=== PATIENT | female | born 1970 | race Caucasian/White ===

== ENCOUNTER 2020-04-22 13:05 | Emergency (ER) | payer SELFPAY ==
[2020-04-22 13:20] VITALS: BP 140/91; PULSE 73; RESP 14; TEMP 35.9; O2SAT 100; BMI 29.2
--- NOTE | 2020-04-22 15:30 | W.ED.ABDPA2 ---
HPI - Abdominal Pain General: Chief Complaint: Abdominal Pain Stated Complaint: lower abd pain Time Seen by Provider: 04/22/20 15:29 Source: patient Mode of arrival: ambulatory Limitations: no limitations History of Present Illness: HPI narrative: Pt states she has had increasing lower abdominal pain with mild NVD. She states she is on her period but this is progressively worse and not improving since this am. MD elicited complaint: abdominal pain Review of Systems General: Reports: 10 or more systems reviewed and unremarkable except in HPI and below GI: Reports: abdominal pain PFSH ED PFSH: Social History Smoking and tobacco status: never smoked Physical Exam Const: COMMON NORMALS: no acute distress, patient oriented x3, no limitations and alert GENERAL APPEARANCE: cooperative and comfortable ORIENTATION/CONSCIOUSNESS: Yes awake, Yes oriented to person, Yes oriented to place and Yes oriented to time HENMT: COMMON NORMALS: normocephalic, atraumatic, external ears normal, EAC's normal, TM's normal bilaterally and Normal external nose present HEAD & SCALP: normal to inspection, normocephalic and atraumatic FACE & SINUS: normal facial exam, sinuses nontender and face symmetric NOSE: Normal external nose present, Normal nares present and No nasal discharge present EXTERNAL EAR: Yes external ears normal EXTERNAL AUDITORY CANAL: EAC's normal TYMPANIC MEMBRANE: TM's normal bilaterally MOUTH: Normal oral and palatal mucosa present, lip normal and tongue normal THROAT: posterior oropharynx normal, tonsils normal and uvula midline Eye: COMMON NORMALS: Equal, round and reactive pupils present, EOMs intact bilaterally and conjunctivae normal GENERAL EYE: appearance normal, both eyes and all related structures and normal light reflex EYELID: eyelids normal CONJUNCTIVA: Yes conjunctivae normal PUPIL: Yes Equal, round and reactive pupils present EOM: Yes EOM abnormal DIRECT OPHTHALMOSCOPY: Yes normal light reflex Neck/C-Spine: COMMON NORMALS: full ROM, no lymphadenopathy, supple, no meningeal signs, no JVD and Thyroid normal GENERAL: Yes normal visual inspection THYROID: Thyroid normal CERVICAL SPINE: Yes cervical ROM normal and Yes normal cervical lordosis Lymph: LYMPHATIC: no lymphadenopathy noted Chest: COMMONS NORMALS: normal inspection of the chest and normal palpation of entire chest wall Resp: COMMON NORMALS: normal respiratory effort, No retractions and clear to auscultation bilaterally AUSCULTATION: clear to auscultation bilaterally Cardio: COMMON NORMALS: no JVD, regular rate, regular rhythm, S1 normal heart sound present, S2 normal heart sound present, No gallops present (Cardio), No clicks present (Cardio), No murmurs present (Cardio), No rub (Cardio) and Peripheral pulses 2+ throughout RATE: regular rate RHYTHM: regular rhythm HEART SOUNDS: S1 normal heart sound present and S2 normal heart sound present PERIPHERAL PULSES: Peripheral pulses 2+ throughout GI: COMMON NORMALS: Normal to inspection, nondistended, normoactive bowel sounds present, Soft to palpation and no masses PALPATION: Yes Soft to palpation and Yes Tenderness to palpation present (GI) Details: LLQ and RLQ : COMMON NORMALS: Yes no CVA tenderness and Yes normal external appearance BLADDER/KIDNEY EXAM: Yes no CVA tenderness Back/Pelvis: COMMON NORMALS: no CVA tenderness, thoracic and lumbar spine normal to inspection, no thoracic nor lumbar tenderness and thoraco-lumbar ROM normal Extremity: COMMON NORMALS: normal to inspection, full ROM, capillary refill normal, no joint enlargement, no clubbing, cyanosis or edema, no calf tenderness and no pedal edema GENERAL: Yes normal exam except as noted Neuro: COMMON NORMALS: patient oriented x3, moves all extremities, no focal motor deficits, no sensory deficits noted and gait normal SENSORIUM/ORIENTATION: Yes alert, Yes oriented to person, Yes oriented to place and Yes oriented to time MENINGEAL SIGNS: Yes no meningeal signs Psych: COMMON NORMALS: mental status grossly normal, Normal thought process present, cooperative, normal affect, speech normal and activity/motor behavior normal SPEECH: Yes normal speech THOUGHT PROCESS: Normal thought process present Skin: COMMON NORMALS: no rashes or lesions noted, no wounds and turgor normal GENERAL SKIN EXAM: no rashes or lesions noted and turgor normal Course ED course: Pt presents with complaints of lower abdominal pain x 1 day; worsening in symptoms and pain. NVD and unable to hold anything down. Pt denies fever. Labs, urinalysis, and imaging orders as well as IV fluids and pain medications Reevaluation(s): Reevaluation #1: Report given to Jake Wheeler NP Time: 17:01 Vital Signs: Vital signs: Vital Signs Temperature 96.7 F L 04/22/20 13:20 Pulse Rate 73 04/22/20 13:20 Respiratory Rate 14 04/22/20 13:20 Blood Pressure 140/91 04/22/20 13:20 Pulse Oximetry 100 04/22/20 13:20 MDM - Abdominal Pain Lab Data: Labs: Lab Results 04/22/20 04/22/20 Range/Units 16:24 16:24 WBC 10.7 H (4.0-10.0) 10^3/ uL RBC 3.75 L (4.1-5.3) 10^6/u L Hgb 11.6 (11.5-15.3) g/dL Hct 38.4 (37.0-47.0) % MCV 102.4 H (81-99) fL MCH 30.9 (28.0-34.0) pg MCHC 30.2 (30.0-36.0) g/dL RDW 14.2 (12.1-15.1) % Plt Count 343 (130-400) 10^3/c mm MPV 9.2 (7.4-10.4) fL Neut % (Auto) 84.6 % Lymph % (Auto) 10.1 % [place] % (Auto) 3.1 % Eos % (Auto) 0.9 % Baso % (Auto) 0.7 % Neut # (Auto) 9.0 H (1.8-7.7) 10^3/u L Lymph # (Auto) 1.1 (0.8-4.8) 10^3/u L [place] # (Auto) 0.3 (0.2-0.9) 10^3/u L Eos # (Auto) 0.1 (0.0-0.8) 10^3/u L Baso # (Auto) 0.1 (0.0-0.1) 10^3/u L Nucleated RBC % (a uto) 0 % Nucleated RBCs # 0.0 /100WBC Sodium 135 L (136-145) mmol/L Potassium 4.3 (3.5-5.1) mmol/L Chloride 100 (98-107) mmol/L Carbon Dioxide 25 (22-29) mmol/L Anion Gap 14.3 (5-19) BUN 12 (6-20) mg/dL Creatinine 1.2 H (0.5-0.9) mg/dL GFR Calculation 47.6 L (90-130) mL/min Glucose 145 H (65-115) mg/dL Calculated Osmolal ity 279 L (285-295) mOsm/k g Calcium 9.3 (8.5-10.5) mg/dL Total Bilirubin 0.2 (0.15-1.2) mg/dL AST 22 (0-32) U/L ALT 14 (0-33) U/L Alkaline Phosphata se 84 (35-105) IU/L Total Protein 7.6 (6.6-8.7) g/dL Albumin 4.4 (3.5-5.2) g/dL Globulin 3.2 (1.3-4.6) g/dL Discharge Plan Discharge Condition: Good Coding Level of Care Code ED [employer] for Chg Fwd Exam Comprehensive
--- NOTE | 2020-04-22 15:47 | CTR_ITS ---
PROCEDURE INFORMATION: Exam: CT Abdomen And Pelvis With Contrast Exam date and time: 04/22/2020 4:05 PM Age: 49 years old Clinical indication: Nausea and other: Diarrhea; Abdominal pain; Localized; Right lower quadrant (rlq); Prior surgery; Surgery type: Gb, ; Additional info: Abd pain/nv TECHNIQUE: Imaging protocol: Computed tomography of the abdomen and pelvis with intravenous contrast. Radiation optimization: All CT scans at this facility use at least one of these dose optimization techniques: automated exposure control; mA and/or kV adjustment per patient size (includes targeted exams where dose is matched to clinical indication); or iterative reconstruction. Contrast material: OMNI 300; Contrast volume: 95 ml; Contrast route: IV; COMPARISON: CT abdomen pelvis w con* [id number] 08/23/2018 11:06 AM RADIATION DOSE METRICS: Total DLP: 1126.65 mGy-cm FINDINGS: Lungs: 4 mm left lower lobe nodule. Liver: Normal. No mass. Gallbladder and bile ducts: Cholecystectomy. The bile ducts are normal. Pancreas: Normal. No ductal dilation. Spleen: Normal. No splenomegaly. Adrenals: Normal. No mass. Kidneys and ureters: Mild parenchymal inhomogeneity in the right kidney with mild right perinephric stranding. 1-2 mm calculus in the right ureterovesical junction with trace right hydronephrosis. The left kidney is normal. Stomach and bowel: Wall thickening in the left hemicolon is related to under distension. Scattered air-fluid levels in the mid to distal small bowel most likely represents ileus. The stomach is unremarkable. Appendix: The appendix is normal. Intraperitoneal space: Unremarkable. No free air. No significant fluid collection. Vasculature: Unremarkable. No abdominal aortic aneurysm. Lymph nodes: Unremarkable. No enlarged lymph nodes. Bladder: Unremarkable as visualized. Reproductive: Unremarkable as visualized. Bones/joints: Chronic bilateral L5 pars fractures. Soft tissues: Unremarkable. CT/CT abdomen pelvis w con* [id number] IMPRESSION: 1. 1-2 mm calculus at the right ureterovesical junction with trace right hydronephrosis. Mild right perinephric stranding. Superimposed pyelonephritis is not entirely excluded. 2. Possible mild small bowel ileus. 3. 4 mm left lower lobe nodule. This is unchanged from the prior study and is most likely benign. For patients at low risk (minimal or absent history of smoking and of other known risk factors), no routine follow-up is indicated. For patients at high risk (history of smoking or of other known risk factors), consider optional CT at 12 months. (Zbigniew et al., Fleischner Society, 2017) Radiation Dose CTDIVOL = (mGy): DLP = 1126.65 (mGy-cm)
[2020-04-22 16:41] LABS: Basophils # 0.1 10^3/uL (0.0-0.1); Basophils % 0.7 %; Eosinophils # 0.1 10^3/uL (0.0-0.8); Eosinophils % 0.9 %; Hematocrit 38.4 % (37.0-47.0); Hemoglobin 11.6 g/dL (11.5-15.3); Lymphocytes # 1.1 10^3/uL (0.8-4.8); Lymphocytes % 10.1 %; Mean Corpuscular HGB Conc 30.2 g/dL (30.0-36.0); Mean Corpuscular Hemoglobin 30.9 pg (28.0-34.0); Mean Corpuscular Volume 102.4 fL (81-99); Mean Platelet Volume 9.2 fL (7.4-10.4); Monocytes # 0.3 10^3/uL (0.2-0.9); Monocytes % 3.1 %; Neutrophils % 84.6 %; Nucleated Red Blood Cells % 0 %; Platelet Count 343 10^3/cmm (130-400); Red Blood Count 3.75 10^6/uL (4.1-5.3); Red Cell Distribution Width 14.2 % (12.1-15.1); White Blood Count 10.7 10^3/uL (4.0-10.0)
[2020-04-22] MEDS: ondansetron 2 mg/ML SDV 2 mL 4 MG IVP (16:45)
[2020-04-22] MEDS: ketorolac 30 mg/mL INJ IVP (16:45)
[2020-04-22] MEDS: sodium chloride 0.9% 500 ML IV (16:50)
[2020-04-22 16:52] LABS: Alanine Aminotransferase 14 U/L (0-33); Albumin Level 4.4 g/dL (3.5-5.2); Alkaline Phosphatase 84 IU/L (35-105); Anion Gap 14.3 (5-19); Aspartate Amino Transferase 22 U/L (0-32); Blood Urea Nitrogen 12 mg/dL (6-20); Calcium 9.3 mg/dL (8.5-10.5); Carbon Dioxide 25 mmol/L (22-29); Chloride 100 mmol/L (98-107); Creatinine Clr Calc Pharmacy 52.3193; Globulin 3.2 g/dL (1.3-4.6); Glomerular Filtration Rate 47.6 mL/min (90-130); Glucose 145 mg/dL (65-115); Osmolality Calculated 279 mOsm/kg (285-295); Potassium 4.3 mmol/L (3.5-5.1); Sodium 135 mmol/L (136-145); Total Bilirubin 0.2 mg/dL (0.15-1.2); Total Protein 7.6 g/dL (6.6-8.7)
[2020-04-22] MEDS: iohexol 300 mg/mL 100 mL Btl IV (16:56)
[2020-04-22 18:12] LABS: Urine Color Yellow (Yellow)
[2020-04-22 18:13] LABS: Add Urine Culture? No; Add Urine Microscopic? YES; Bacteria Urine TRACE; Bilirubin Urine Neg (NEGATIVE); Blood Urine 3+ (Negative); Glucose Urine UA Norm (Normal); Ketones Urine Negative (Negative); Leukocyte Esterase Urine Negative (Negative); Mucus Urine 1+; Nitrate Urine Negative (Negative); Protein Urine Neg (Negative); Urobilinogen Urine Norm (Negative); pH Urine 5 (5-7)
[2020-04-22 18:43] VITALS: BP 152/87; PULSE 74; RESP 18; O2SAT 98
== END 2020-04-22 18:48 | disposition home or self-care (01) ==
PROVIDERS: Nurse Practitioner Family; Emergency Provider Nurse Practitioner Family
DX: R10.9 Unspecified abdominal pain (principal)
CPT/HCPCS: 12345; 36415; 74177; 80053; 81001; 85025; 96361; 96374; 96375; 99282; 99283; J1885; J2405; J7040; Q9967

== ENCOUNTER 2022-02-18 13:04 | Outpatient (CLI) | payer OTHER, SELFPAY ==
--- NOTE | 2022-02-18 13:18 | MM_ITS ---
WS: [id number] BILATERAL 3D TOMOSYNTHESIS DIGITAL SCREENING MAMMOGRAPHY WITH CAD CLINICAL INFORMATION: SCREENING HISTORY: Screening mammogram. Bilateral breast soreness COMPARISON: August 22, 2013 and TECHNIQUE: Bilateral CC and MLO views. FINDINGS: Scattered fibroglandular densities bilaterally. Tiny punctate calcification RIGHT breast. No suspicio us focal mass, asymmetry, calcifications, or architectural distortion. No evidence of malignancy. MM/[place] [id number] IMPRESSION: BI-RADS: 2-Benign FOLLOW UP: 1 Year Follow-up Recommend return to annual screening mammography.
== END 2022-02-18 13:05 | disposition home or self-care (01) ==
PROVIDERS: Visit Provider Family Medicine
DX: Z12.31 Encounter for screening mammogram for malignant neoplasm of breast (principal)
CPT/HCPCS: 77063; 77067

== ENCOUNTER 2022-10-12 10:25 | Outpatient (CLI) | payer OTHER, SELFPAY ==
--- NOTE | 2022-10-12 11:31 | XRR_ITS ---
PROCEDURE INFORMATION: Exam: XR Chest Exam date and time: 10/12/2022 11:39 AM Age: 51 years old Clinical indication: Condition or disease; Lung condition and disease; Asthma; Moderate persistent; Cough and fever; Prior surgery; Surgery type: Lumpectomy; Additional info: Moderate persistent asthma with acute exacerbation TECHNIQUE: Imaging protocol: Radiologic exam of the chest. Views: 2 views. COMPARISON: CT abdomen pelvis w con* [id number] 04/22/2020 4:47 PM FINDINGS: Lungs: Unremarkable. No consolidation. Pleural spaces: Unremarkable. No pleural effusion. No pneumothorax. Heart/Mediastinum: Unremarkable. No cardiomegaly. Bones/joints: Unremarkable. XR/XR chest 2V* [id number] IMPRESSION: No acute findings.
== END 2022-10-12 10:26 | disposition home or self-care (01) ==
PROVIDERS: PCP Family Medicine; Visit Provider Nurse Practitioner Family
DX: J45.41 Moderate persistent asthma with (acute) exacerbation (principal); J20.8 Acute bronchitis due to other specified organisms
CPT/HCPCS: 71046

== ENCOUNTER 2023-02-22 10:40 | Outpatient (CLI) | payer BC, MEDICAID, SELFPAY ==
--- NOTE | 2023-02-22 11:05 | MM_ITS ---
WS: [id number] BILATERAL SCREENING DIGITAL TOMOSYNTHESIS MAMMOGRAM WITH CAD HISTORY: SCREENING COMPARISON: 02/18/2022, 08/07/2013 Bilateral CC and MLO views with tomosynthesis and synthetic mammography submitted. Computer aided det ection analyzed. Breast composition: There are scattered areas of fibroglandular density. No suspicious masses, microc alcifications or architectural distortion. MM/[id number] IMPRESSION: BI-RADS: 1-Negative FOLLOW UP: 1 Year Follow-up
== END 2023-02-22 10:41 | disposition home or self-care (01) ==
LOC: RAD 10:50
PROVIDERS: PCP Family Medicine; Visit Provider Family Medicine
DX: Z12.31 Encounter for screening mammogram for malignant neoplasm of breast (principal)
CPT/HCPCS: 77063; 77067

== ENCOUNTER 2024-09-05 06:32 | Day surgery (SDC) | payer BC, MEDICAID, SELFPAY ==
[2024-09-05 06:53] VITALS: BP 93/71; PULSE 98; RESP 18; TEMP 36.2; O2SAT 95; BMI 29.2
--- NOTE | 2024-09-05 07:01 | PM.HP ---
Providers/Chief Complaint Primary Care Provider: Gwendolyn Brown DO Chief Complaint: Z12.11 History of Present Illness Natasha Lugo is a 53 year old female Review of Systems General: Reports: 10 or more systems reviewed and unremarkable except in HPI and below Medications/Allergies Home Medications Medication Instructions Recorded Confirmed Last Taken Type albuterol sulfate 90 mcg/actuation 1 inh inhalation QID PRN Shortness 04/22/20 09/05/24 09/03/24 History aerosol inhaler (Ventolin HFA) Of Breath naproxen sodium 220 mg tablet 220 mg PO BID PRN Pain 04/22/20 09/05/24 09/03/24 History (Aleve) dulaglutide [Trulicity] 1 insert SUBCUT .WEEKLY 07/20/24 09/05/24 08/29/24 History budesonide-formoterol HFA 160 1 inh inhalation DAILY 09/03/24 09/05/24 09/05/24 History mcg-4.5 mcg/actuation aerosol inhaler (Symbicort) estradiol 2 mg tablet 2 mg PO DAILY 09/03/24 09/05/24 09/04/24 History levothyroxine 150 mcg tablet 150 mcg PO DAILY 09/03/24 09/05/24 09/05/24 History simvastatin 20 mg tablet 20 mg PO DAILY 09/03/24 09/05/24 09/04/24 History Allergies Allergy/AdvReac Type Severity Reaction Status Date / Time No Known Allergies Allergy Verified 07/20/24 11:14 PFSH Acute PFSH: Social History Smoking and tobacco/nicotine status: never used tobacco/nicotine Vitals/I&O/Wt Last Vital Signs Temp 97.2 F L 09/05/24 06:53 Pulse 98 09/05/24 06:53 Resp 18 09/05/24 06:53 BP 93/71 09/05/24 06:53 Pulse Ox 95 09/05/24 06:53 O2 Del Method Room Air 09/05/24 06:53 Weight last 48 hrs Weight 160 lb A&P Assessment and plan (1) Colon cancer screening: Plan Screening colonoscopy Attestations Medical Necessity Statement*: Home Coding Level of Care Code Acute Code for Chg Fwd Diagnoses Colon cancer screening Z12.11
[2024-09-05] MEDS: sodium chloride 0.9% 1,000 ML 30 ML IV (07:05)
[2024-09-05 07:10] LABS: Glucose Point of Care 125 mg/dL (70-110)
--- NOTE | 2024-09-05 07:15 | ANES.PREANE2 ---
Pre-Anesthetic Assessment Height/Weight: Height 5 ft 2 in Weight 160 lb Temp Pulse Resp BP Pulse Ox O2 Del Method 97.2 F L 98 18 93/71 95 Room Air 09/05/24 06:53 09/05/24 06:53 09/05/24 06:53 09/05/24 06:53 09/05/24 06:53 09/05/24 06:53 Preop Diagnosis: Screening colonoscopy Operation Date: 09/05/24 07:30 Proposed Procedures p Colonoscopy - 35217, Z12.11(Not Applicable) - Lawrence Mariscal, DO Was Beta Lisa taken within 24 hours: N/A Was Clonidine taken within 24 hours: N/A Last intake: Intake Last Liquid Date 09/04/24 Last Liquid Time 22:00 Last Solid Date 09/03/24 Last Solid Time 19:30 Social No alcohol and No tobacco Exam alert, oriented x 3, clear to auscultation bilaterally and regular rate & rhythm Airway Submandibular: within normal limits Cervical ROM: within normal limits Mallampati: Class III Dentition: full Anesthetic Plan ASA status: 2 Anesthesia: MAC Other: No prior issues with anesthesia Completed bowel prep Patient takes Trulicity for type 2 diabetes, last taken 08/29/2024 Hypertension on valsartan, taken yesterday Denies any pulmonary issues METs greater than 4 Plan for MAC anesthetic Medications/Allergies Home Medications Medication Instructions Recorded Confirmed Last Taken Type albuterol sulfate 90 mcg/actuation 1 inh inhalation QID PRN Shortness 04/22/20 09/05/24 09/03/24 History aerosol inhaler (Ventolin HFA) Of Breath naproxen sodium 220 mg tablet 220 mg PO BID PRN Pain 04/22/20 09/05/24 09/03/24 History (Aleve) dulaglutide [Trulicity] 1 insert SUBCUT .WEEKLY 07/20/24 09/05/24 08/29/24 History budesonide-formoterol HFA 160 1 inh inhalation DAILY 09/03/24 09/05/24 09/05/24 History mcg-4.5 mcg/actuation aerosol inhaler (Symbicort) estradiol 2 mg tablet 2 mg PO DAILY 09/03/24 09/05/24 09/04/24 History levothyroxine 150 mcg tablet 150 mcg PO DAILY 09/03/24 09/05/24 09/05/24 History simvastatin 20 mg tablet 20 mg PO DAILY 09/03/24 09/05/24 09/04/24 History valsartan 80 mg tablet 80 mg PO DAILY 09/05/24 09/05/24 09/04/24 History Allergies Allergy/AdvReac Type Severity Reaction Status Date / Time No Known Allergies Allergy Verified 07/20/24 11:14 Current Medications Generic Name Dose Route Start Last Admin Trade Name Freq PRN Reason Stop Dose Admin Sodium Chloride 1,000 mls @ 30 mls/hr 09/05/24 06:45 09/05/24 07:05 Sodium Chloride 0.9% IV 09/06/24 06:44 30 mls/hr .Q24H GLADYS Administration PFSH Anesthesia Social History Smoking and tobacco/nicotine status: never used tobacco/nicotine Data Anesthesia Cardiac Studies: No Data to Display
[2024-09-05 07:57] VITALS: BP 87/47; PULSE 91; RESP 10; TEMP 36.3; O2SAT 99
[2024-09-05 08:10] VITALS: BP 106/72; BP 110/69; PULSE 90; PULSE 94; RESP 16; RESP 18; O2SAT 100; O2SAT 96
--- NOTE | 2024-09-05 08:34 | ANE.PACU2 ---
Inpatient post-anesthesia follow up: Airway intact: Yes Vital signs: Temperature 97.3 F Pulse Rate 90 Respiratory Rate 18 Blood Pressure 110/69 Pulse Oximetry 96 Oxygen Delivery Me thod Room Air Oxygen Flow Rate 3.5 Fraction of Inspir ed Oxygen Hydration adequate: Yes Nausea and vomiting: No Pain level: 1 Mental status: Baseline
== END 2024-09-05 08:34 | disposition home or self-care (01) ==
PROVIDERS: PCP Family Medicine; Visit Provider Surgery
PROC: 0DJD8ZZ Inspection of Lower Intestinal Tract, Via Natural or Artificial Opening Endoscopic (ICD-10-PCS; CPT 45378; principal; 2024-09-05 07:30)
DX: Z12.11 Encounter for screening for malignant neoplasm of colon (principal); K64.8 Other hemorrhoids; I10 Essential (primary) hypertension
CPT/HCPCS: 36416; 82962; J2704; J7030